=== PATIENT | female | born 1955 | race Caucasian/White ===

== ENCOUNTER → 2017-01-23 | Outpatient (CLI) | payer OTHER ==
[~2017-01-23] MED LIST: CALTRATE 600 +1 EAC1 PO; CELEXA20 MG PO; CRESTOR5 MG PO; FISH OIL 1,2001 EAC1 PO; IMITREX100 MG PO; MAXALT10 MG PO; MULTI VITAMIN1 EACH PO; PRILOSEC20 MG PO; VITAMIN D31000 UNIT PO
== END | disposition disaster alternative care site (69) ==
LOC: GBCOE 07:15
DX: Z12.31 Encounter for screening mammogram for malignant neoplasm of breast (principal)
CPT/HCPCS: G0202

== ENCOUNTER → 2017-01-27 | Day surgery (SDC) | payer OTHER ==
[~2017-01-27] VITALS: Ht 162.6 cm; Wt 71.3 kg
== END | disposition disaster alternative care site (69) ==
LOC: GPOC 01-25 09:00 → GEND 07:34 → GPOC 09:00
PROC: 0DBE8ZX Excision of Large Intestine, Via Natural or Artificial Opening Endoscopic, Diagnostic (ICD-10-PCS; principal; 2017-01-27)
DX: Z12.11 Encounter for screening for malignant neoplasm of colon (principal); D12.6 Benign neoplasm of colon, unspecified; K57.30 Diverticulosis of large intestine without perforation or abscess without bleeding; E78.5 Hyperlipidemia, unspecified; K21.9 Gastro-esophageal reflux disease without esophagitis; G43.909 Migraine, unspecified, not intractable, without status migrainosus; M85.80 Other specified disorders of bone density and structure, unspecified site; Z88.8 Allergy status to other drugs, medicaments and biological substances; Z79.899 Other long term (current) drug therapy; Z98.890 Other specified postprocedural states
CPT/HCPCS: J7030